=== PATIENT | female | born 1950 | race Caucasian/White ===

== ENCOUNTER 2016-11-14 23:24 | Inpatient (IN) | payer MEDICARE, MEDICAID ==
[~2016-11-14] VITALS: Ht 162.6 cm; Wt 55.3 kg
[2016-11-14] MEDS ORDERED: CEPH-570 PO (23:27)
[2016-11-14] MEDS ORDERED: DIVA125C5 PO (23:42)
[2016-11-14] MEDS ORDERED: QUET25TA PO (23:42)
[2016-11-14] MEDS ORDERED: TRIA10PO3 MC (23:42)
[2016-11-14] MEDS ORDERED: MEMA5TAB PO (23:42)
[2016-11-14] MEDS ORDERED: DONE10TA44 PO (23:42)
[2016-11-14] MEDS ORDERED: QUET100T PO (23:42)
[2016-11-14] MEDS ORDERED: CITA10TA9 PO (23:42)
[2016-11-14] MEDS ORDERED: LORA0.5T PO (23:42)
[2016-11-15] MEDS ORDERED: MAG HYDROX/AL HYDROX/SIMETH 30 ML LIQUID UDC PO PRN (01:30)
[2016-11-15] MEDS ORDERED: CLONAZEPAM 0.5 MG TABLET PO SCH (01:30)
[2016-11-15 01:40] VITALS: BP 113/72
[2016-11-15] MEDS: ACETAMINOPHEN 325 MG TABLET PO PRN (04:27)
[2016-11-15] MEDS ORDERED: ACETAMINOPHEN 325 MG TABLET ONE (04:30)
[2016-11-15] MEDS ORDERED: CLONAZEPAM 0.5 MG TABLET ONE (04:30)
[2016-11-15 07:30] VITALS: BP 125/75
[2016-11-15] MEDS: CLONAZEPAM 0.5 MG TABLET PO PRN (10:13)
[2016-11-15] MEDS ORDERED: OLANZAPINE 10 MG VIAL IM ONE (10:45)
[2016-11-15 15:35] VITALS: BP 112/74
[2016-11-15] MEDS: CEPHALEXIN MONOHYDRATE 500 MG CAPSULE PO SCH ×2 (17:31→20:03)
[2016-11-15] MEDS: CITALOPRAM 10 MG TABLET PO SCH (17:31)
[2016-11-15] MEDS: DIVALPROEX SPRINKLE 125 MG CAP.SPRINK PO SCH (17:31)
[2016-11-15] MEDS: OLANZAPINE ZYDIS 5 MG TAB.RAPDIS PO SCH (20:03)
[2016-11-15] MEDS: HYDROCORTISONE 1% CREAM 30 GM TUBE TP SCH (20:04)
[2016-11-16] MEDS: CLONAZEPAM 0.5 MG TABLET PO PRN (03:40)
[2016-11-16 07:30] VITALS: BP 99/68
[2016-11-16] MEDS: CITALOPRAM 10 MG TABLET PO SCH (08:50)
[2016-11-16] MEDS: CEPHALEXIN MONOHYDRATE 500 MG CAPSULE PO SCH ×4 (08:51→20:23)
[2016-11-16] MEDS: DIVALPROEX SPRINKLE 125 MG CAP.SPRINK PO SCH ×3 (08:51→18:05)
[2016-11-16] MEDS: HYDROCORTISONE 1% CREAM 30 GM TUBE TP SCH ×2 (08:59→20:24)
[2016-11-16 16:07] VITALS: BP 104/67
[2016-11-16 20:28] VITALS: BP 100/54
[2016-11-16 21:00] VITALS: BP 122/61
[2016-11-16] MEDS: OLANZAPINE ZYDIS 5 MG TAB.RAPDIS PO SCH (21:01)
[2016-11-17 07:30] VITALS: BP 108/68
[2016-11-17] MEDS: DIVALPROEX SPRINKLE 125 MG CAP.SPRINK PO SCH ×4 (09:00→17:20)
[2016-11-17] MEDS: CEPHALEXIN MONOHYDRATE 500 MG CAPSULE PO SCH ×4 (09:02→20:30)
[2016-11-17] MEDS: CITALOPRAM 10 MG TABLET PO SCH (09:02)
[2016-11-17] MEDS: HYDROCORTISONE 1% CREAM 30 GM TUBE TP SCH ×2 (09:03→19:55)
[2016-11-17] MEDS: CLONAZEPAM 0.5 MG TABLET PO PRN ×2 (14:17→21:11)
[2016-11-17 15:21] VITALS: BP 92/58
[2016-11-17] MEDS: OLANZAPINE ZYDIS 5 MG TAB.RAPDIS PO SCH (19:56)
[2016-11-17 20:31] VITALS: BP 100/67
[2016-11-17] MEDS: ACETAMINOPHEN 325 MG TABLET PO PRN (21:11)
[2016-11-17] MEDS: TEMAZEPAM 7.5 MG CAPSULE PO PRN (23:53)
[2016-11-18 07:30] VITALS: BP 93/57
[2016-11-18] MEDS: CITALOPRAM 10 MG TABLET PO SCH (09:35)
[2016-11-18] MEDS: DIVALPROEX SPRINKLE 125 MG CAP.SPRINK PO SCH ×3 (09:35→17:53)
[2016-11-18] MEDS: CEPHALEXIN MONOHYDRATE 500 MG CAPSULE PO SCH ×4 (09:35→20:15)
[2016-11-18] MEDS: HYDROCORTISONE 1% CREAM 30 GM TUBE TP SCH ×2 (09:35→20:15)
[2016-11-18] MEDS ORDERED: PERMETHRIN 5% CREAM 60 GM TUBE TP ONE (12:45)
[2016-11-18 16:08] VITALS: BP 96/68
[2016-11-18 20:10] VITALS: BP 94/58
[2016-11-18 20:13] VITALS: BP 94/58
[2016-11-18] MEDS: OLANZAPINE ZYDIS 5 MG TAB.RAPDIS PO SCH (20:15)
[2016-11-19] MEDS: CLONAZEPAM 0.5 MG TABLET PO PRN (00:41)
[2016-11-19 08:00] VITALS: BP 123/75
[2016-11-19] MEDS: CEPHALEXIN MONOHYDRATE 500 MG CAPSULE PO SCH ×4 (08:24→20:00)
[2016-11-19] MEDS: DIVALPROEX SPRINKLE 125 MG CAP.SPRINK PO SCH ×3 (08:24→17:32)
[2016-11-19] MEDS: CITALOPRAM 10 MG TABLET PO SCH (08:24)
[2016-11-19] MEDS: HYDROCORTISONE 1% CREAM 30 GM TUBE TP SCH ×2 (08:25→20:00)
[2016-11-19 16:00] VITALS: BP_SYST 117; BP_SYST 146; BP_DIAS 75; BP_DIAS 87
[2016-11-19] MEDS: OLANZAPINE ZYDIS 5 MG TAB.RAPDIS PO SCH (20:00)
[2016-11-19 20:19] VITALS: BP 121/59
[2016-11-20 07:03] LABS: BASOPHILS % (AUTO) 0.5 % (0.0-2.0); EOSINOPHILS # (AUTO) 0.5 K/uL (0.0-0.7); EOSINOPHILS % (AUTO) 5.2 % (0.0-7.0); HEMATOCRIT 42.6 % (37-47); HEMOGLOBIN 14.1 G/DL (12.0-16.0); LYMPHOCYTES # (AUTO) 1.7 K/UL (0.8-4.8); LYMPHOCYTES % (AUTO) 18.2 % (20.5-51.5); MEAN CORPUSCULAR HEMOGLOBIN 30.7 UUG (27.0-31.0); MEAN CORPUSCULAR HGB CONC 33 g/dL (32.0-37.0); MEAN CORPUSCULAR VOLUME 92.6 FL (81.0-99.0); MONOCYTES # (AUTO) 0.5 K/UL (0.1-1.30); MONOCYTES % (AUTO) 5.3 % (0.0-11.0); NEUTROPHILS # (AUTO) 6.6 K/UL (1.8-8.9); NEUTROPHILS % (AUTO) 70.8 % (38.5-71.5); PLATELET COUNT (AUTO) 184 K/UL (150-450); WHITE BLOOD COUNT (AUTO) 9.3 K/UL (4.0-11.2)
[2016-11-20 07:16] LABS: CREATININE 0.7 mg/dL (0.6-1.3); MAGNESIUM 2.2 mg/dL (1.8-2.4); POTASSIUM 4.1 mmol/L (3.5-5.1)
[2016-11-20 07:30] VITALS: BP 91/70
[2016-11-20] MEDS: CEPHALEXIN MONOHYDRATE 500 MG CAPSULE PO SCH ×4 (08:33→20:30)
[2016-11-20] MEDS: DIVALPROEX SPRINKLE 125 MG CAP.SPRINK PO SCH ×3 (08:33→17:12)
[2016-11-20] MEDS: CITALOPRAM 10 MG TABLET PO SCH (08:33)
[2016-11-20] MEDS: HYDROCORTISONE 1% CREAM 30 GM TUBE TP SCH ×2 (11:05→20:34)
[2016-11-20 16:00] VITALS: BP 110/76
[2016-11-20 20:24] VITALS: BP 100/50
[2016-11-20] MEDS: OLANZAPINE ZYDIS 5 MG TAB.RAPDIS PO SCH (20:30)
[2016-11-20] MEDS: Z GUARD REMEDY PASTE 57 GM TUBE TOP SCH (20:44)
[2016-11-21 07:30] VITALS: BP 109/59
[2016-11-21] MEDS: CEPHALEXIN MONOHYDRATE 500 MG CAPSULE PO SCH ×4 (08:26→20:45)
[2016-11-21] MEDS: CITALOPRAM 10 MG TABLET PO SCH (08:27)
[2016-11-21] MEDS: Z GUARD REMEDY PASTE 57 GM TUBE TOP SCH ×2 (08:27→21:00)
[2016-11-21] MEDS: DIVALPROEX SPRINKLE 125 MG CAP.SPRINK PO SCH ×3 (08:27→17:25)
[2016-11-21] MEDS: HYDROCORTISONE 1% CREAM 30 GM TUBE TP SCH ×2 (08:28→22:44)
[2016-11-21 15:00] VITALS: BP 104/79
[2016-11-21 20:09] VITALS: BP 124/81
[2016-11-21] MEDS: ATORVASTATIN 40 MG TABLET PO SCH (20:44)
[2016-11-21] MEDS: OMEGA-3 FATTY ACIDS/FISH OIL CAPSULE PO SCH (20:44)
[2016-11-21] MEDS: OLANZAPINE ZYDIS 5 MG TAB.RAPDIS PO SCH (20:45)
[2016-11-21] MEDS: TEMAZEPAM 7.5 MG CAPSULE PO PRN ×2 (22:38→23:42)
[2016-11-22 07:30] VITALS: BP 125/50
[2016-11-22] MEDS: CITALOPRAM 10 MG TABLET PO SCH (08:18)
[2016-11-22] MEDS: CEPHALEXIN MONOHYDRATE 500 MG CAPSULE PO SCH ×4 (08:19→20:46)
[2016-11-22] MEDS: OMEGA-3 FATTY ACIDS/FISH OIL CAPSULE PO SCH ×2 (08:19→20:46)
[2016-11-22] MEDS: DIVALPROEX SPRINKLE 125 MG CAP.SPRINK PO SCH ×3 (08:19→16:53)
[2016-11-22] MEDS: HYDROCORTISONE 1% CREAM 30 GM TUBE TP SCH ×2 (08:20→20:47)
[2016-11-22] MEDS: Z GUARD REMEDY PASTE 57 GM TUBE TOP SCH ×2 (08:46→20:47)
[2016-11-22 15:25] VITALS: BP 110/78
[2016-11-22 20:11] VITALS: BP 124/73
[2016-11-22] MEDS: OLANZAPINE ZYDIS 5 MG TAB.RAPDIS PO SCH (20:46)
[2016-11-22] MEDS: diphenhydrAMINE 25 MG/10 ML UDC NG PRN (20:46)
[2016-11-22] MEDS: ATORVASTATIN 40 MG TABLET PO SCH (20:46)
[2016-11-23 07:30] VITALS: BP 117/80
[2016-11-23] MEDS: CITALOPRAM 10 MG TABLET PO SCH (08:29)
[2016-11-23] MEDS: CEPHALEXIN MONOHYDRATE 500 MG CAPSULE PO SCH (08:29)
[2016-11-23] MEDS: DIVALPROEX SPRINKLE 125 MG CAP.SPRINK PO SCH ×4 (08:29→17:37)
[2016-11-23] MEDS: Z GUARD REMEDY PASTE 57 GM TUBE TOP SCH ×2 (08:30→20:48)
[2016-11-23] MEDS: OMEGA-3 FATTY ACIDS/FISH OIL CAPSULE PO SCH ×2 (09:00→20:33)
[2016-11-23] MEDS: HYDROCORTISONE 1% CREAM 30 GM TUBE TP SCH ×2 (11:16→20:32)
[2016-11-23 15:15] VITALS: BP 133/78
[2016-11-23] MEDS: MAGNESIUM HYDROXIDE 30 ML LIQUID UDC PO PRN (18:26)
[2016-11-23 20:01] VITALS: BP 117/74
[2016-11-23] MEDS: OLANZAPINE ZYDIS 5 MG TAB.RAPDIS PO SCH (20:33)
[2016-11-23] MEDS: ATORVASTATIN 40 MG TABLET PO SCH (20:34)
[2016-11-23] MEDS: diphenhydrAMINE 25 MG/10 ML UDC NG PRN (20:35)
[2016-11-24 07:30] VITALS: BP 121/68
[2016-11-24] MEDS: OMEGA-3 FATTY ACIDS/FISH OIL CAPSULE PO SCH ×2 (09:00→20:48)
[2016-11-24] MEDS: DIVALPROEX SPRINKLE 125 MG CAP.SPRINK PO SCH ×3 (10:21→17:39)
[2016-11-24] MEDS: CITALOPRAM 10 MG TABLET PO SCH (10:21)
[2016-11-24] MEDS: HYDROCORTISONE 1% CREAM 30 GM TUBE TP SCH ×2 (10:23→20:34)
[2016-11-24] MEDS: Z GUARD REMEDY PASTE 57 GM TUBE TOP SCH ×2 (10:38→20:33)
[2016-11-24] MEDS: OLANZAPINE ZYDIS 5 MG TAB.RAPDIS PO SCH ×2 (12:58→20:35)
[2016-11-24] MEDS: BISACODYL 5 MG TABLET.DR PO PRN (13:40)
[2016-11-24 15:40] VITALS: BP 118/72
[2016-11-24] MEDS: ATORVASTATIN 40 MG TABLET PO SCH (20:34)
[2016-11-24] MEDS: diphenhydrAMINE 25 MG/10 ML UDC NG PRN (20:36)
[2016-11-24 20:58] VITALS: BP 126/82
[2016-11-25 07:30] VITALS: BP 141/79
[2016-11-25] MEDS: CITALOPRAM 10 MG TABLET PO SCH (09:40)
[2016-11-25] MEDS: DIVALPROEX SPRINKLE 125 MG CAP.SPRINK PO SCH ×3 (09:40→16:51)
[2016-11-25] MEDS: Z GUARD REMEDY PASTE 57 GM TUBE TOP SCH ×2 (09:41→20:34)
[2016-11-25] MEDS: OLANZAPINE ZYDIS 5 MG TAB.RAPDIS PO SCH ×2 (09:41→21:01)
[2016-11-25] MEDS: OMEGA-3 FATTY ACIDS/FISH OIL CAPSULE PO SCH ×2 (09:41→21:00)
[2016-11-25] MEDS: HYDROCORTISONE 1% CREAM 30 GM TUBE TP SCH ×2 (09:43→20:34)
[2016-11-25] MEDS ORDERED: PERMETHRIN 5% CREAM 60 GM TUBE TP ONE (12:45)
[2016-11-25] MEDS: MAGNESIUM HYDROXIDE 30 ML LIQUID UDC PO PRN (13:37)
[2016-11-25] MEDS: BISACODYL 5 MG TABLET.DR PO PRN (13:37)
[2016-11-25 15:08] VITALS: BP 134/68
[2016-11-25] MEDS ORDERED: BISACODYL 10 MG SUPP.RECT RC PRN (16:15)
[2016-11-25 20:05] VITALS: BP 128/68
[2016-11-25] MEDS: ATORVASTATIN 40 MG TABLET PO SCH (21:00)
[2016-11-25] MEDS: DOCUSATE SODIUM 100 MG CAPSULE PO SCH (21:01)
[2016-11-26] MEDS: TEMAZEPAM 7.5 MG CAPSULE PO PRN (00:49)
[2016-11-26 07:30] VITALS: BP 134/70
[2016-11-26] MEDS: OMEGA-3 FATTY ACIDS/FISH OIL CAPSULE PO SCH (08:01)
[2016-11-26] MEDS: CITALOPRAM 10 MG TABLET PO SCH (08:02)
[2016-11-26] MEDS: DIVALPROEX SPRINKLE 125 MG CAP.SPRINK PO SCH ×2 (08:02→12:28)
[2016-11-26] MEDS: DOCUSATE SODIUM 100 MG CAPSULE PO SCH (08:02)
[2016-11-26] MEDS: HYDROCORTISONE 1% CREAM 30 GM TUBE TP SCH (08:04)
[2016-11-26] MEDS: Z GUARD REMEDY PASTE 57 GM TUBE TOP SCH (08:11)
[2016-11-26] MEDS: OLANZAPINE ZYDIS 5 MG TAB.RAPDIS PO SCH (08:22)
== END 2016-11-26 13:30 | DRG 881 ==
LOC: ER 23:59 → GPS 11-15 00:42
PROVIDERS: ADMIT Psychiatry & Neurology Psychiatry; ATTEND Psychiatry & Neurology Psychiatry
DX: F32.9 Major depressive disorder, single episode, unspecified (principal); F02.80 Dementia in other diseases classified elsewhere, unspecified severity, without behavioral disturbance, psychotic disturbance, mood disturbance, and anxiety; N39.0 Urinary tract infection, site not specified; F39 Unspecified mood [affective] disorder; F29 Unspecified psychosis not due to a substance or known physiological condition; G30.9 Alzheimer's disease, unspecified; Z73.6 Limitation of activities due to disability; R45.1 Restlessness and agitation; E78.5 Hyperlipidemia, unspecified; K59.00 Constipation, unspecified; Z79.899 Other long term (current) drug therapy; B86 Scabies
CPT/HCPCS: 36415; 71010; 73521; 74000; 80164; 83735; 85025; 93005; 97001; A4663; J2358; Q0163